=== PATIENT | female | born 1940 | race Asian ===

== ENCOUNTER → 2017-09-02 | Outpatient (CLI) | payer OTHER ==
[~2017-09-02] MED LIST: CEPH500C PO; CHOL100027 PO; FISHOIL PO; LOVA40TA4 PO; MULTTAB58 PO; VITA400C3 PO
== END | disposition home or self-care (01) ==
LOC: C.LABSPEC 17:50
PROVIDERS: ATTEND Physician Assistant
DX: R10.2 Pelvic and perineal pain (principal)